=== PATIENT | male | born 1965 | race Caucasian/White ===

== ENCOUNTER 2019-03-15 02:04 | Emergency (ER) | payer OTHER ==
[~2019-03-15] VITALS: Ht 165.1 cm; Wt 83.5 kg
[~2019-03-15 02:04] MED LIST: COLACE
[2019-03-15 02:11] VITALS: BP 147/91
--- NOTE | 2019-03-15 02:11 | NUR ---
PT TRIAGED AT BEDSIDE, AMBULATORY TO BED 12 WITH
--- NOTE | 2019-03-15 02:16 | NUR ---
EKG PERFORMED AT BEDSIDE. PT COVERED IN GOWN DURING PROCEDURE
[2019-03-15] MEDS ORDERED: [UNRECOGNIZED DRUG - CODE] PO (02:20)
[2019-03-15] MEDS ORDERED: LISI40TA4 PO (02:20)
[2019-03-15] MEDS ORDERED: HYDR12.51 PO (02:20)
[2019-03-15] MEDS ORDERED: NAPR-1404 PO (02:20)
[2019-03-15] MEDS ORDERED: ASPI-1173 PO (02:20)
[2019-03-15] MEDS ORDERED: AMLO5TAB PO (02:20)
--- NOTE | 2019-03-15 02:26 | NUR ---
54/M PRESENTS TO ED WITH , C/O / HEAVINESS/PRESSURE INTERMITTENT L SIDED NONRADIATING CP, X5 HRS. PT STATED THAT PAIN STARTED 5 HRS AGO, PT WAS ABLE TO SLEEP FOR 2 HRS AND THEN PT WOKE UP WITH WORSE PAIN. PT REPORTS NAUSEA. DENIES VOMITING OR SOB. PT AOX4, GCS 15, RR EVEN AND UNLABORED. LUNG SOUNDS CLEAR BL. HR EVEN AND REGULAR. BS ACTIVE X4, ABD SOFT ROUND NONTENDER HX HTN RX ASPIRIN, LISINOPRIL, HCTZ, NORVASC, POTASSIUM SUPPLEMENT
--- NOTE | 2019-03-15 02:26 | NUR ---
DR TORRES AT BEDSIDE
[2019-03-15] MEDS ORDERED: ASPIRIN 325 MG TAB PO ONE (02:30)
[2019-03-15 02:50] LABS: BASOPHILS % (AUTO) 0.6 % (0.0-2.0); EOSINOPHILS # (AUTO) 0.1 K/uL (0-0.4); EOSINOPHILS % (AUTO) 1.9 % (0.0-4.0); HEMATOCRIT 40.4 % (36-52); HEMOGLOBIN 13.9 g/dL (12.0-18.0); LYMPHOCYTES % (AUTO) 30.5 % (20.5-51.1); MEAN CORPUSCULAR HEMOGLOBIN 33 pg (27-31); MEAN CORPUSCULAR HGB CONC 34 g/dL (33-37); MONOCYTES # (AUTO) 0.5 K/uL (0.8-1.0); MONOCYTES % (AUTO) 8.2 % (1.7-9.3); NEUTROPHILS # (AUTO) 3.9 K/uL (1.8-7.7); NEUTROPHILS % (AUTO) 58.8 % (42.2-75.2); PLATELET COUNT (AUTO) 285 K/uL (140-450); RED BLOOD CELL COUNT(AUTO) 4.25 MIL/uL (4.20-6.10); RED CELL DISTRIBUTION WIDTH 12.9 % (11.6-13.7); WHITE BLOOD COUNT (AUTO) 6.6 K/uL (4.8-10.8)
[2019-03-15 03:09] LABS: ANION GAP 11.8 (8-16); CARBON DIOXIDE 29.3 mmol/L (21-32); POTASSIUM 3.1 mmol/L (3.5-5.1)
[2019-03-15 03:15] LABS: TOTAL BILIRUBIN 0.4 mg/dL (0.0-1.0)
[2019-03-15 03:16] LABS: ALBUMIN 3.6 g/dL (3.4-5.0)
[2019-03-15] MEDS ORDERED: ONDANSETRON 4 MG/2 ML VIAL IVP ONE (03:30)
[2019-03-15] MEDS ORDERED: MORPHINE SULFATE 4 MG/ML SYR IVP ONE (03:30)
--- NOTE | 2019-03-15 04:39 | NUR ---
PT LAYING IN BED, AT BEDSIDE. REPORTS IMPROVEMENT IN PAIN RELIEF 4/10 AT THIS TIME, DENIES NAUSEA. VSS. RR EVEN AND UNLABORED. ALL NEEDS MET.
--- NOTE | 2019-03-15 05:14 | NUR ---
DR TORRES AT BEDSIDE
[2019-03-15 05:27] VITALS: BP 104/64
== END 2019-03-15 05:27 | disposition home or self-care (01) ==
LOC: MED 02:04
DX: R07.89 Other chest pain (principal); R11.0 Nausea; I10 Essential (primary) hypertension; Z79.82 Long term (current) use of aspirin; Z79.899 Other long term (current) drug therapy
CPT/HCPCS: 36415; 71045; 80053; 83880; 84484; 85025; 85610; 85730; 93005; 96374; 96375; 99284; J2270; J2405

== ENCOUNTER 2023-09-03 05:44 | Inpatient (IN) | payer OTHER ==
[~2023-09-03] VITALS: Ht 167.6 cm; Wt 81.6 kg
[2023-09-03] VITALS (7 sets, daily range): BP systolic 157–190; BP diastolic 86–91; PULSE 70–79; RESP 17–18; TEMP 97.8; O2SAT 94–96
[~2023-09-03 05:44] MED LIST changes: +AMLO5TAB PO; +ASPI-1856 PO; -COLACE; +HYDR12.51 PO; +LISI40TA8 PO; +NAPR-1404 PO; +POTA10TA81 PO
[2023-09-03] MEDS ORDERED: ONDANSETRON 4 MG/2 ML VIAL IVP ONE (06:25)
[2023-09-03] MEDS ORDERED: MORPHINE SULFATE 4 MG/ML SYR IVP ONE ×3 (06:25→10:10)
[2023-09-03] MEDS ORDERED: NACL 0.9% 1,000 ML IV SCH (06:25)
[2023-09-03 07:55] LABS: BASOPHILS % (AUTO) 0.3 % (0.0-2.0); HEMATOCRIT 44.4 % (36-52); HEMOGLOBIN 14.9 g/dL (12.0-18.0); LYMPHOCYTES # (AUTO) 0.9 K/uL (2.0-11.5); LYMPHOCYTES % (AUTO) 9.2 % (20.5-51.1); MEAN CORPUSCULAR HEMOGLOBIN 32 pg (27-31); MEAN CORPUSCULAR HGB CONC 34 g/dL (33-37); MEAN CORPUSCULAR VOLUME 94.6 fL (80-94); MONOCYTES # (AUTO) 0.3 K/uL (0.8-1.0); MONOCYTES % (AUTO) 2.8 % (1.7-9.3); NEUTROPHILS # (AUTO) 8.2 K/uL (1.8-7.7); NEUTROPHILS % (AUTO) 87.7 % (42.2-75.2); PLATELET COUNT (AUTO) 321 K/uL (140-450); RED BLOOD CELL COUNT(AUTO) 4.69 MIL/uL (4.20-6.10); RED CELL DISTRIBUTION WIDTH 12.9 % (11.6-13.7); WHITE BLOOD COUNT (AUTO) 9.4 K/uL (4.8-10.8)
[2023-09-03 08:22] LABS: PARTIAL THROMBOPLASTIN TIME 25.6 secs (22-35.6); PROTHROMBIN TIME 10.5 secs (10.8-13.4)
[2023-09-03 08:32] LABS: LACTIC ACID 2.1 mmol/L (0.4-2.0)
[2023-09-03 08:36] LABS: ALANINE AMINOTRANSFERASE 26 U/L (12-78); ALBUMIN 4.1 g/dL (3.4-5.0); ALKALINE PHOSPHATASE 95 U/L (50-136); ANION GAP 15.4 (8-16); ASPARTATE AMINOTRANSFERASE 20 U/L (15-37); CALCIUM 9.1 mg/dL (8.5-10.1); CARBON DIOXIDE 26.9 mmol/L (21-32); CHLORIDE 102 mmol/L (98-107); CREATININE 1.1 mg/dL (0.6-1.3); GFR ARICAN-AMERICAN 88 mL/min (>90); GFR NON ARICAN-AMERICAN 73 mL/min (>90); GLUCOSE 170 mg/dL (74-106); POTASSIUM 3.3 mmol/L (3.5-5.1); SODIUM SERUM 141 mmol/L (136-145); TOTAL BILIRUBIN 0.7 mg/dL (0.0-1.0); TOTAL PROTEIN, SERUM 7.7 g/dL (6.4-8.2); UREA NITROGEN, BLOOD 17 mg/dL (7-18)
[2023-09-03 08:46] LABS: APPEARANCE,URINE CLEAR (CLEAR); BILIRUBIN,URINE NEGATIVE (NEGATIVE); BLOOD, URINE NEGATIVE (NEGATIVE); COLOR,URINE YELLOW (YELLOW); LEUKOCYTE ESTERASE ,URINE NEGATIVE (NEGATIVE); NITRITE, URINE NEGATIVE (NEGATIVE); PROTEIN,URINE NEGATIVE (NEGATIVE); UGLUCOSE NEGATIVE (NEGATIVE); UROBILINOGEN,URINE 0.2 EU/dL (0.2 - 1)
[2023-09-03] MEDS ORDERED: NACL 0.9% 500 ML IV ONE (10:10)
[2023-09-03] MEDS ORDERED: BENZOCAINE 20% 57 GM CAN MC ONE (10:10)
[2023-09-03] MEDS ORDERED: METO50TE2 PO (11:14)
[2023-09-03] MEDS ORDERED: ACET-9525 PO (11:19)
[2023-09-03] MEDS ORDERED: SERT50TA PO (11:19)
[2023-09-03] MEDS ORDERED: TAMS0.4C96 PO (11:19)
[2023-09-03] MEDS ORDERED: ATA25 PO (11:19)
[2023-09-03] MEDS ORDERED: LORazepam 2 MG/ML VIAL IVP PRN (11:40)
[2023-09-03] MEDS ORDERED: ONDANSETRON 4 MG/2 ML VIAL IVP PRN (11:40)
[2023-09-03] MEDS ORDERED: MAG SULF 2000 MG/WATER PREMIX 50 ML IV PRN (11:40)
[2023-09-03] MEDS ORDERED: KCL 20 MEQ IN 100 mL PREMIX 200 ML IV PRN (11:40)
[2023-09-03] MEDS: DEXT 5% /NACL 0.9% 1,000 ML IV SCH (12:33)
[2023-09-03] MEDS: MORPHINE SULFATE 4 MG/ML SYR IVP PRN ×2 (14:12→18:01)
[2023-09-03] MEDS ORDERED: POTASSIUM CHLORIDE 10 MEQ TABER PO PRN (16:30)
[2023-09-04] VITALS: BP 147/85; PULSE 75; RESP 18; TEMP 97.2; O2SAT 97
[2023-09-04] MEDS: DEXT 5% /NACL 0.9% 1,000 ML IV SCH ×3 (01:20→13:17)
[2023-09-04] MEDS ORDERED: POTASSIUM CHLORIDE 20% 40 MEQ/15 ML UDC GT ONE ×2 (01:35→03:15)
[2023-09-04 06:43] LABS: BASOPHILS % (AUTO) 0.2 % (0.0-2.0); EOSINOPHILS # (AUTO) 0.1 K/uL (0-0.4); EOSINOPHILS % (AUTO) 0.7 % (0.0-4.0); HEMATOCRIT 38.8 % (36-52); HEMOGLOBIN 13.1 g/dL (12.0-18.0); LYMPHOCYTES # (AUTO) 1.2 K/uL (2.0-11.5); LYMPHOCYTES % (AUTO) 14.9 % (20.5-51.1); MEAN CORPUSCULAR HEMOGLOBIN 32 pg (27-31); MEAN CORPUSCULAR HGB CONC 34 g/dL (33-37); MEAN CORPUSCULAR VOLUME 95.6 fL (80-94); MONOCYTES # (AUTO) 0.6 K/uL (0.8-1.0); MONOCYTES % (AUTO) 7.2 % (1.7-9.3); NEUTROPHILS # (AUTO) 6.2 K/uL (1.8-7.7); PLATELET COUNT (AUTO) 258 K/uL (140-450); RED BLOOD CELL COUNT(AUTO) 4.06 MIL/uL (4.20-6.10); RED CELL DISTRIBUTION WIDTH 12.6 % (11.6-13.7); WHITE BLOOD COUNT (AUTO) 8.1 K/uL (4.8-10.8)
[2023-09-04 06:59] LABS: ANION GAP 8.8 (8-16); CALCIUM 7.9 mg/dL (8.5-10.1); CARBON DIOXIDE 29.9 mmol/L (21-32); CREATININE 0.9 mg/dL (0.6-1.3); POTASSIUM 3.7 mmol/L (3.5-5.1)
[2023-09-04 08:00] VITALS: BP 129/55; PULSE 85; RESP 16; TEMP 99.3; O2SAT 85; O2SAT 97
[2023-09-04] MEDS: MORPHINE SULFATE 4 MG/ML SYR IVP PRN ×3 (09:05→21:50)
[2023-09-04 11:12] VITALS: O2SAT 98
[2023-09-04] MEDS: MORPHINE SULFATE 2 MG/ML SYR IVP PRN (13:21)
[2023-09-04 16:00] VITALS: BP 142/64; PULSE 79; RESP 16; TEMP 98.4; O2SAT 95
[2023-09-04 20:00] VITALS: PULSE 75; RESP 18; O2SAT 97
[2023-09-05] VITALS: BP 161/73; PULSE 87; RESP 18; TEMP 98.4; O2SAT 97
[2023-09-05] MEDS: DEXT 5% /NACL 0.9% 1,000 ML IV SCH ×2 (02:24→11:27)
[2023-09-05 07:01] LABS: BASOPHILS % (AUTO) 0.3 % (0.0-2.0); EOSINOPHILS # (AUTO) 0.1 K/uL (0-0.4); EOSINOPHILS % (AUTO) 1.7 % (0.0-4.0); HEMATOCRIT 39.7 % (36-52); HEMOGLOBIN 13.7 g/dL (12.0-18.0); LYMPHOCYTES # (AUTO) 1.2 K/uL (2.0-11.5); LYMPHOCYTES % (AUTO) 15.4 % (20.5-51.1); MEAN CORPUSCULAR HEMOGLOBIN 33 pg (27-31); MEAN CORPUSCULAR HGB CONC 34 g/dL (33-37); MEAN CORPUSCULAR VOLUME 95.2 fL (80-94); MONOCYTES # (AUTO) 0.6 K/uL (0.8-1.0); MONOCYTES % (AUTO) 8.4 % (1.7-9.3); NEUTROPHILS # (AUTO) 5.7 K/uL (1.8-7.7); NEUTROPHILS % (AUTO) 74.2 % (42.2-75.2); PLATELET COUNT (AUTO) 264 K/uL (140-450); RED BLOOD CELL COUNT(AUTO) 4.17 MIL/uL (4.20-6.10); RED CELL DISTRIBUTION WIDTH 12.7 % (11.6-13.7); WHITE BLOOD COUNT (AUTO) 7.6 K/uL (4.8-10.8)
[2023-09-05 07:13] LABS: ANION GAP 11.4 (8-16); CALCIUM 8.2 mg/dL (8.5-10.1); CARBON DIOXIDE 28.4 mmol/L (21-32); CREATININE 0.9 mg/dL (0.6-1.3)
[2023-09-05 07:32] LABS: POTASSIUM 2.8 mmol/L (3.5-5.1)
[2023-09-05 08:00] VITALS: BP 140/69; PULSE 76; RESP 20; TEMP 98.4; O2SAT 100
[2023-09-05] MEDS ORDERED: POTASSIUM CHLORIDE 20% 40 MEQ/15 ML UDC GT SCH ×2 (11:00→14:00)
[2023-09-05] MEDS: MORPHINE SULFATE 2 MG/ML SYR IVP PRN (14:08)
[2023-09-05 16:00] VITALS: BP 157/97; PULSE 76; RESP 20; TEMP 99.2; O2SAT 100
[2023-09-05 16:01] VITALS: BP 140/69; PULSE 76; RESP 20; TEMP 98.4
== END 2023-09-05 18:25 | disposition home or self-care (01) | DRG 389 ==
LOC: MED 05:44 → MTU 11:39
PROVIDERS: ADMIT Internal Medicine; ATTEND Internal Medicine
DX: K56.609 Unspecified intestinal obstruction, unspecified as to partial versus complete obstruction (principal); E87.20 Acidosis, unspecified; I10 Essential (primary) hypertension; F41.9 Anxiety disorder, unspecified; F32.A Depression, unspecified; E87.6 Hypokalemia; N40.0 Benign prostatic hyperplasia without lower urinary tract symptoms; E86.0 Dehydration; Z79.899 Other long term (current) drug therapy; Z87.442 Personal history of urinary calculi; Z79.82 Long term (current) use of aspirin
CPT/HCPCS: 36415; 71045; 74018; 74250; 80048; 80053; 81003; 83605; 83735; 84484; 85025; 85610; 85730; 87040; 87081; 87086; 93005; 96374; 96375; 96376; 99285; J2270; J2405; J3480; Q0092